=== PATIENT | female | born 1990 | race Caucasian/White ===

== ENCOUNTER 2022-01-02 16:27 | Emergency (ER) | payer SELFPAY ==
[2022-01-02 17:06] LABS: HEMOGLOBIN 15.3 gm/dl (12.3-15.3); RED BLOOD COUNT 4.92 M/UL (4.00-5.10); WHITE BLOOD COUNT 10.3 K/UL (4.5-11.0)
[2022-01-02 17:35] LABS: BUN/CREATININE RATIO 23 (0-10)
[2022-01-04] MEDS ORDERED: MACROBID 100 M100 MG PO (00:14)
[2022-01-04] MEDS ORDERED: BACTRIM DS TAB1 EACH PO (00:28)
== END 2022-01-02 18:52 | disposition left against medical advice (07) ==
LOC: ER1 16:27
PROVIDERS: Emergency Medicine
DX: R10.11 Right upper quadrant pain (principal)
CPT/HCPCS: 80053; 81001; 83690; 85025; 99281